=== PATIENT | female | born 1995 | race Caucasian/White ===

== ENCOUNTER 2018-09-26 14:24 | Emergency (ER) | payer OTHER ==
[~2018-09-26] VITALS: Ht 165.1 cm; Wt 86.2 kg
[~2018-09-26 14:24] MED LIST: TRAM50TA PO
[2018-09-26 15:01] VITALS: BP 138/68
[2018-09-26] MEDS ORDERED: IBUPROFEN 600 MG TABLET. PO ONE (15:15)
[2018-09-26] MEDS ORDERED: ORPHENADRINE CITRATE 60 MG/2 ML VIAL. IM ONE (15:15)
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
[2018-09-26] MEDS ORDERED: HYDR-971 PO (16:22)
[2018-09-26] MEDS ORDERED: IBUP-1007 PO (16:22)
[2018-09-26] MEDS ORDERED: ORPH100T PO (16:22)
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
== END 2018-09-26 16:26 | disposition home or self-care (01) ==
LOC: ER 14:24
DX: S00.11XA Contusion of right eyelid and periocular area, initial encounter (principal); S80.01XA Contusion of right knee, initial encounter; F12.20 Cannabis dependence, uncomplicated; Z98.890 Other specified postprocedural states; V43.62XA Car passenger injured in collision with other type car in traffic accident, initial encounter; Y93.89 Activity, other specified; Y92.410 Unspecified street and highway as the place of occurrence of the external cause; Y99.8 Other external cause status
CPT/HCPCS: 70486; 73562; 96372; 99284; J2360

== ENCOUNTER 2019-11-19 19:08 | Emergency (ER) | payer MEDICAID, OTHER ==
[~2019-11-19] VITALS: Ht 160 cm; Wt 88.5 kg
[~2019-11-19 19:08] MED LIST changes: +HYDR-3164 PO; +IBUP-1007 PO; +ORPH100T PO
[2019-11-19 19:21] VITALS: BP 122/61
[2019-11-19] MEDS ORDERED: AMOX1TAB61 PO (20:00)
--- NOTE | 2019-11-19 20:00 | PHYS DOC ---
Past Medical History Past Medical History: No Pertinent History Past Surgical History: , Other Additional Past Surgical Histo: TUBES TIED Alcohol Use: None Drug Use: Marijuana Adult General Chief Complaint Chief Complaint: EARACHE/EAR PAIN HPI HPI Patient is a 24 year old female with history of sinusitis of presents in the ED today complaining of nasal congestion intermittently for 1 month. Patient is also complaining of right ear pain on and off for the last 1-2 weeks. She reports using [id number] remedies with no relief. Denies any fever. Review of Systems Review of Systems Constitutional: Denies fever or chills [] Eyes: Denies change in visual acuity, redness, or eye pain [] HENT: Reports nasal congestion and right ear pain, denies sore throat [] Respiratory: Denies cough or shortness of breath [] Cardiovascular: No additional information not addressed in HPI [] GI: Denies abdominal pain, nausea, vomiting, bloody stools or diarrhea [] : Denies dysuria or hematuria [] Musculoskeletal: Denies back pain or joint pain [] Integument: Denies rash or skin lesions [] Neurologic: Denies headache, focal weakness or sensory changes [] All other systems were reviewed and found to be within normal limits, except as documented in this note. Allergies Allergies Allergies Coded Allergies Type Severity Reaction Last Updated Verified No Known Drug Allergies 10/03/14 No Physical Exam Physical Exam Constitutional: Well developed, well nourished, no acute distress, non-toxic appearance. [] HENT: Normocephalic, atraumatic, bilateral external ears normal, oropharynx moist, no oral exudates, patient sounds congested nasally, bilateral nasal turbinates are boggy and erythematous with mild frontal sinus pressure. Right TM is moderately injected Eyes: PERRLA, EOMI, conjunctiva normal, no discharge. [] Neck: Normal range of motion, no tenderness, supple, no stridor. [] Cardiovascular:Heart rate regular rhythm, no murmur [] Lungs & Thorax: Bilateral breath sounds clear to auscultation [] Abdomen: Bowel sounds normal, soft, no tenderness, no masses, no pulsatile masses. [] Skin: Warm, dry, no erythema, no rash. [] Back: No tenderness, no CVA tenderness. [] Extremities: No tenderness, no cyanosis, no clubbing, ROM intact, no edema. [] Neurologic: Alert and oriented X 3, normal motor function, normal sensory function, no focal deficits noted. [] Psychologic: Affect normal, judgement normal, mood normal. [] Current Patient Data Vital Signs Vital Signs Date Time Temp Pulse Resp B/P (MAP) Pulse Ox O2 Delivery O2 Flow Rate FiO2 11/19/19 19:21 97.6 78 16 122/61 (81) 98 Room Air 97.6 EKG EKG [] Radiology/Procedures Radiology/Procedures [] Course & Med Decision Making Course & Med Decision Making Pertinent Labs and Imaging studies reviewed. (See chart for details) This is a 24-year-old female patient with acute otitis media and sinusitis. Disc harged with Augmentin. Follow-up with PCP in 1-2 weeks. Dragon Disclaimer Dragon Disclaimer This electronic medical record was generated, in whole or in part, using a voice recognition dictation system. Departure Departure Impression: Primary Impression: Acute sinusitis Additional Impression: Right otitis media Disposition: HOME, SELF-CARE Condition: STABLE Referrals: NO PCP (PCP) follow up with your doctor in 1-2 weeks Patient Instructions: Otitis Media, Adult, [id number], Sinusitis Additional Instructions: You have ear infection and sinus infection, we put you on antibiotics, take them as prescribed. Please take Tylenol/Motrin for pain or fever push fluids. Follow-up with your doctor in 1-2 weeks. Scripts Amoxicillin/Potassium Clav (AUGMENTIN 875-125 TABLET) 1 Each Tablet 1 TAB PO BID for 10 Days, #20 TAB 0 Refills Prov: RUTH MCGREGOR APRN 11/19/19 Problem Qualifiers Primary Impression: Acute sinusitis Sinusitis location: maxillary Recurrence: recurrent Qualified Codes: J01.01 - Acute recurrent maxillary sinusitis Additional Impression: Right otitis media Otitis media type: other nonsuppurative Chronicity: acute Recurrence: non-recurrent Qualified Codes: H65.191 - Other acute nonsuppurative otitis media, right ear RUTH MCGREGOR APRN Nov 19, 2019 20:00
== END 2019-11-19 20:09 | disposition home or self-care (01) ==
LOC: ER 19:08
DX: J01.01 Acute recurrent maxillary sinusitis (principal); H65.191 Other acute nonsuppurative otitis media, right ear
CPT/HCPCS: 99283